=== PATIENT | male | born 1980 | race Caucasian/White ===

== ENCOUNTER 2017-02-07 09:42 | Emergency (ER) | payer MEDICAID ==
[~2017-02-07] VITALS: Ht 182.9 cm; Wt 156.2 kg
[2017-02-07 11:42] VITALS: BP 155/92
== END 2017-02-07 11:43 | disposition home or self-care (01) ==
LOC: ED 09:42
DX: M54.5 Low back pain (principal); E11.9 Type 2 diabetes mellitus without complications; I10 Essential (primary) hypertension
CPT/HCPCS: J1815; J1885

== ENCOUNTER 2017-03-07 17:44 | Emergency (ER) | payer MEDICAID ==
[~2017-03-07] VITALS: Ht 182.9 cm; Wt 159.2 kg
[2017-03-07 17:51] VITALS: BP 164/110
== END 2017-03-07 19:41 | disposition home or self-care (01) ==
LOC: ED 17:44
DX: M54.5 Low back pain (principal); X50.0XXA Overexertion from strenuous movement or load, initial encounter; Y93.89 Activity, other specified; Y92.513 Shop (commercial) as the place of occurrence of the external cause; Y99.0 Civilian activity done for income or pay

== ENCOUNTER 2017-04-17 11:25 | Emergency (ER) | payer MEDICAID ==
[~2017-04-17] VITALS: Ht 182.9 cm; Wt 153.5 kg
[2017-04-17 13:14] VITALS: BP 145/82
== END 2017-04-17 13:14 | disposition home or self-care (01) ==
LOC: ED 11:25
DX: M54.5 Low back pain (principal); I10 Essential (primary) hypertension; E11.9 Type 2 diabetes mellitus without complications; E78.00 Pure hypercholesterolemia, unspecified

== ENCOUNTER 2017-04-27 14:27 | Emergency (ER) | payer MEDICAID ==
[~2017-04-27] VITALS: Ht 182.9 cm; Wt 155.2 kg
[2017-04-27 16:39] VITALS: BP 148/103
== END 2017-04-27 17:00 | disposition home or self-care (01) ==
LOC: ED 14:27
DX: K02.9 Dental caries, unspecified (principal); E11.9 Type 2 diabetes mellitus without complications; E66.9 Obesity, unspecified; E78.00 Pure hypercholesterolemia, unspecified

== ENCOUNTER 2017-06-06 00:39 | Emergency (ER) | payer MEDICAID ==
[2017-06-06 02:44] VITALS: BP 153/98
== END 2017-06-06 02:44 | disposition home or self-care (01) ==
LOC: ED 00:39
DX: L03.115 Cellulitis of right lower limb (principal); I10 Essential (primary) hypertension; E11.9 Type 2 diabetes mellitus without complications

== ENCOUNTER 2018-09-12 10:13 | Inpatient (IN) | payer MEDICAID ==
[~2018-09-12] VITALS: Ht 182.9 cm; Wt 125.2 kg
[2018-09-12 10:24] VITALS: Ht 182.9 cm; Wt 125.2 kg
[2018-09-12 11:50] LABS: CALCIUM 8.4 mg/dL (8.5-10.1); CARBON DIOXIDE 31.4 mmol/L (21-32); CHLORIDE SERUM 102 mmol/L (98-107); CREATININE SERUM 0.6 mg/dL (0.7-1.3); GFR1 > 60 mL/min; GLUCOSE SERUM 174 mg/dL (74-106); POTASSIUM SERUM 3.8 mmol/L (3.5-5.1); SODIUM SERUM 139 mmol/L (136-145)
[2018-09-12 11:59] LABS: BASOPHIL % 0.3 % (0-2); PLATELET COUNT 292 x10^3mcL (130-400); RED CELL DISTRIBUTION WIDTH 12.9 % (11.5-14.5)
[2018-09-12 13:38] LABS: T3 TOTAL 0.97 ng/mL
[2018-09-12 13:44] LABS: CHOLESTEROL/HDL RATIO 4.7; MAGNESIUM 1.6 mg/dL (1.8-2.4); PHOSPHOROUS 2.8 mg/dL (2.5-4.9); T4(THYROXINE) 6.1 ug/dL (4.7-13.3)
[2018-09-12 13:46] LABS: FREE T4 0.86 ng/dL (0.76-1.46)
[2018-09-12 14:49] VITALS: BP 135/95
[2018-09-12 16:21] VITALS: BP 160/103
[2018-09-12 18:25] VITALS: BP 141/86
[2018-09-12 20:26] VITALS: BP 158/95
[2018-09-13 05:19] LABS: microscopic required? NO
[2018-09-13 05:45] VITALS: BP 158/109
[2018-09-13 05:51] LABS: urine erythrocyte NEGATIVE (NEGATIVE)
[2018-09-13 06:00] LABS: AMPHETAMINE QUAL UR POSITIVE (See below)
[2018-09-13 06:01] VITALS: BP 142/98
[2018-09-13 08:42] LABS: BASOPHIL % 0.3 % (0-2); PLATELET COUNT 280 x10^3mcL (130-400); RED CELL DISTRIBUTION WIDTH 12.6 % (11.5-14.5)
[2018-09-13 08:43] LABS: CALCIUM 8.2 mg/dL (8.5-10.1); CHLORIDE SERUM 102 mmol/L (98-107); CREATININE SERUM 0.4 mg/dL (0.7-1.3); GFR1 > 60 mL/min; GLUCOSE SERUM 129 mg/dL (74-106); MAGNESIUM 1.7 mg/dL (1.8-2.4); POTASSIUM SERUM 3.8 mmol/L (3.5-5.1); SODIUM SERUM 139 mmol/L (136-145)
[2018-09-13 09:28] VITALS: BP 164/99
[2018-09-13 17:43] VITALS: BP 146/103
[2018-09-13 20:44] VITALS: BP 141/92
[2018-09-13 20:54] VITALS: BP 154/93
[2018-09-14 05:19] VITALS: BP 155/104
[2018-09-14 06:31] LABS: CALCIUM 8.2 mg/dL (8.5-10.1); CARBON DIOXIDE 28.9 mmol/L (21-32); CHLORIDE SERUM 103 mmol/L (98-107); CREATININE SERUM 0.5 mg/dL (0.7-1.3); GFR1 > 60 mL/min; GLUCOSE SERUM 111 mg/dL (74-106); MAGNESIUM 1.7 mg/dL (1.8-2.4); POTASSIUM SERUM 4.1 mmol/L (3.5-5.1); SODIUM SERUM 139 mmol/L (136-145)
[2018-09-14 07:26] LABS: BASOPHIL % 0.3 % (0-2); PLATELET COUNT 271 x10^3mcL (130-400); RED CELL DISTRIBUTION WIDTH 12.3 % (11.5-14.5)
[2018-09-14 10:09] VITALS: BP 143/95
[2018-09-14 17:25] VITALS: BP 126/82
[2018-09-14 23:03] VITALS: BP 154/92
[2018-09-14 23:11] VITALS: BP 132/88
[2018-09-15 05:04] VITALS: BP 138/89
[2018-09-15 09:40] VITALS: BP 143/92
[2018-09-15] MEDS ORDERED: ZES10 PO (10:32)
[2018-09-15] MEDS ORDERED: ZESTRIL10 MG PO (10:33)
[2018-09-15] MEDS ORDERED: BACTRIM DS1 TAB PO (10:33)
[2018-09-15] MEDS ORDERED: KEFLEX500 M1 PO (10:34)
[2018-09-15 11:17] VITALS: BP 143/92
== END 2018-09-15 11:35 | disposition home or self-care (01) | DRG 383 ==
LOC: ED 10:13 → MU 12:43
PROVIDERS: Emergency Medicine; Family Medicine
PROC: 0JCR0ZZ Extirpation of Matter from Left Foot Subcutaneous Tissue and Fascia, Open Approach (ICD-10-PCS; principal; 2018-09-13)
DX: L03.116 Cellulitis of left lower limb (principal); E83.42 Hypomagnesemia; E11.9 Type 2 diabetes mellitus without complications; M79.5 Residual foreign body in soft tissue; E78.5 Hyperlipidemia, unspecified; F12.10 Cannabis abuse, uncomplicated; E66.9 Obesity, unspecified; Z66 Do not resuscitate; Z68.37 Body mass index [BMI] 37.0-37.9, adult
CPT/HCPCS: 82962; 84439; J0295; J1644; J1885; J2001; J3475; J3490; J7030; Q0092

== ENCOUNTER 2019-01-28 13:11 | Emergency (ER) | payer MEDICAID ==
[~2019-01-28] VITALS: Ht 182.9 cm; Wt 142.0 kg
[~2019-01-28 13:11] MED LIST: BACTRIM DS1 TAB PO; KEFLEX500 M1 PO; ZES10 PO; ZESTRIL10 MG PO
[2019-01-28 13:34] VITALS: Ht 182.9 cm; Wt 142.0 kg
[2019-01-28 16:08] VITALS: BP 149/99
== END 2019-01-28 16:08 | disposition home or self-care (01) ==
LOC: ED 13:11
DX: K02.9 Dental caries, unspecified (principal); E11.9 Type 2 diabetes mellitus without complications; I10 Essential (primary) hypertension; E78.00 Pure hypercholesterolemia, unspecified; Z90.49 Acquired absence of other specified parts of digestive tract; Z98.890 Other specified postprocedural states
CPT/HCPCS: 82962